=== PATIENT | male | born 1995 | race Caucasian/White ===

== ENCOUNTER 2018-08-08 00:36 | Emergency (ER) | payer OTHER, SELFPAY ==
[2018-08-08 00:37] VITALS: BP 160/85; PULSE 76; RESP 16; TEMP 35.7; BMI 27.8
[2018-08-08 01:29] LABS: Absolute Lymphocyte Count 1.52 X10^3/ul (0.83-4.51); Absolute Neutrophil Count 4.4 X10^3/uL (2.0-7.7); Basophil# 0.04 X10^3/uL; Basophil% 0.6 % (0-1); Eosinophil# 0.02 X10^3/uL; Eosinophils% 0.3 % (0-5); Hematocrit 40.6 % (40-54); Hemoglobin 14.6 g/dl (13.0-16.5); Lymphocyte # 1.52 X10^3/ul (4.0); Lymphocyte % 22.5 % (19-41); Mean Corpuscular Hgb 29.5 pg (27.0-32.0); Mean Platelet Vol. 10.5 fl (6.2-12.0); Monocyte# 0.76 X10^3/uL; Monocyte% 11.2 % (0-10); Neutrophil # 4.41 X10^3/uL (2.7-7.7); Neutrophil % 65.1 % (47-70); Platelet Count 183 K/mm3 (150-450); RBC Distribution Width CV 12.4 % (11.6-14.6); RBC Distribution Width SD 37.1 fl (35.1-43.9); Red Blood Count 4.95 M/mm3 (4.6-6.2); White Blood Count 6.8 K/mm3 (4.4-11.0)
[2018-08-08 01:30] LABS: POSITIVE COUNT NO; POSITIVE DIFFERENTIAL NO; POSITIVE MORPHOLOGY NO
--- NOTE | 2018-08-08 02:01 | ED.DCSUM_ITS ---
- ER Visit Summary Date of Service: 08/08/18 Chief Complaint: Abdominal pain diarrhea History of Present Illness: The patient is a 23 M who states on Monday night he began to have lower abdominal cramping and diarrhea. He states tonight he believes he saw some blood in the stool. He denies any fever. He states on Monday he had a bit of a runny nose and a cough which is since resolved. No nausea vomiting. Tonight for dinner he ate to [employer] a helping of corn and a helping of beings. Physical Examination: Afebrile vital signs are stable Gen: Well-nourished well-developed Head: Normocephalic atraumatic Eyes: Perrl EOMI ENT: TMs clear no rhinorrhea moist mucous membranes Neck: Supple no lymphadenopathy no JVD nontender CVS: Regular rate rhythm no murmurs normal S1-S2 Respiratory: No distress clear to auscultation bilaterally chest nontender Abdomen: Soft mild lower abdominal tenderness to palpation without guarding or rebound nondistended normal bowel sounds no masses Back: Nontender Extremity: Nontender no edema Skin: Normal color no rash. No purpura. Neuro: alert orientated ?3 CN II-XII intact normal strength sensation reflexes gait cerebellar Psych: Normal affect normal mood Test Results: White count is normal. Stool studies are positive fecal leukocytes. Positive for Hemoccult. Stool panel ordered. Emergency Department Course and Treatment: Patient was given Cipro and a short course while we await the stool panel. We talked about return instructions. We talked about the possibility of inflammatory bowel disease what to do if he has recurrence. We advised follow-up if not improved. We advised to return if worsening. Impression: 1. Acute abdominal pain 2. Diarrhea-report pending This note was generated with [employer] dictation software. It may contain incorrect words, spelling, and punctuation that were not noted in review of the chart prior to signing ED Disposition - Plan for ED Patient: Disposition: Home or Assisted Living Chief Complaint: Abd Pain Instructions: ED Diarrhea Bacterial Prescriptions: Ciprofloxacin [Cipro] 500 mg PO BID #10 tab Referrals: Mary Qiu MD [STAFF PHYSICIAN] - 1 Week if not improving
[2018-08-08] MEDS: Ciprofloxacin 500 MG Tablet PO (02:25)
[2018-08-08 02:26] VITALS: PULSE 66; RESP 14; O2SAT 98
== END 2018-08-08 02:30 | disposition home or self-care (01) ==
PROVIDERS: Emergency Provider Emergency Medicine
DX: R10.9 Unspecified abdominal pain (principal); R19.7 Diarrhea, unspecified; R05 Cough; J34.89 Other specified disorders of nose and nasal sinuses
CPT/HCPCS: 36415; 82274; 83630; 85025; 87506; 99283

== ENCOUNTER → 2019-11-12 12:35 | Outpatient (CLI) | payer BC, SELFPAY ==
[2019-11-12 13:43] LABS: NATERA MAILED SPECIMEN
== END ==
PROVIDERS: Referring Provider Obstetrics & Gynecology; Visit Provider Obstetrics & Gynecology
DX: Z31.440 Encounter of male for testing for genetic disease carrier status for procreative management (principal)